=== PATIENT | male | born 1995 | race Caucasian/White ===

== ENCOUNTER 2017-09-25 19:44 | Emergency (ER) | payer OTHER ==
[2017-09-25] MEDS ORDERED: NORMAL SALINE 1000 ML 1,000 ML IV ONE (22:35)
[2017-09-25] MEDS ORDERED: ONDANSETRON HCL INJ/PF 4 MG/2 ML SDV IV ONE (22:35)
[2017-09-25 23:42] LABS: ALANINE AMINOTRANSFERASE 31 U/L (21-72); ALKALINE PHOSPHATASE 85 U/L (38-126); ANION GAP 13 (5-19); ASPARTATE AMINO TRANSFERASE 19 U/L (17-59); BILIRUBIN,DIRECT 0.4 mg/dL (0.0-0.4); BILIRUBIN,TOTAL 0.6 mg/dL (0.2-1.3); BLOOD UREA NITROGEN 16 mg/dL (7-20); CALCIUM 9.5 mg/dL (8.4-10.2); CARBON DIOXIDE 25 mmol/L (22-30); CHLORIDE 101 mmol/L (98-107); CREATININE RESULT 0.86 mg/dL (0.52-1.25); GLUCOSE 101 mg/dL (75-110); LIPASE 108.2 U/L (23-300); POTASSIUM 4.3 mmol/L (3.6-5.0); SODIUM 139.4 mmol/L (137-145); TOTAL PROTEIN 6.7 g/dL (6.3-8.2)
[2017-09-25] MEDS ORDERED: ONDANSETRON ODT 4 MG TAB (6 TAB/DSPK) PO PRN (23:51)
--- NOTE | 2017-09-25 23:53 | ER Document Report ---
ED General - General Chief Complaint: Nausea/Vomiting/Diarrhea Stated Complaint: DIARRHEA AND VOMITING Time Seen by Provider: 09/25/17 21:53 Notes: Patient is a 22-year-old male without past medical history who presents with 5 days of watery diarrhea as well as 1 day of vomiting. The patient reports that the diarrhea has been persistent for the past 5 days and he has been using loperamide without any significant improvement in the diarrhea. He notes that he began to vomit today that it was nonbilious. He is uncertain if he has had any sick contacts. Patient states that he felt he had subjective fever at home but has not recorded temperature. He has no history of similar symptoms in the past. He denies any focal abdominal pain. He has been able to tolerate oral fluids since the onset of vomiting. He has not seen his primary care doctor regarding today's concerns. TRAVEL OUTSIDE OF THE [place] IN LAST 30 DAYS: No - Related Data Allergies/Adverse Reactions: No Known Allergies Allergy (Verified 09/25/17 20:31) Past Medical History - General Information source: Patient - Social History Smoking Status: Never Smoker Chew tobacco use (# tins/day): No Frequency of alcohol use: None Drug Abuse: None Lives with: Spouse/Significant other Family History: Reviewed & Not Pertinent Patient has suicidal ideation: No Patient has homicidal ideation: No Renal/ Medical History: Denies: Hx Peritoneal Dialysis Review of Systems - Review of Systems Notes: Constitutional: Negative for fever. HENT: Negative for sore throat. Eyes: Negative for visual changes. Cardiovascular: Negative for chest pain. Respiratory: Negative for shortness of breath. Gastrointestinal: Negative for abdominal pain, positive for vomiting and diarrhea Genitourinary: Negative for dysuria. Musculoskeletal: Negative for back pain. Skin: Negative for rash. Neurological: Negative for headaches, weakness or numbness. 10 point ROS negative except as marked above and in HPI. Physical Exam - Vital signs Vitals: Temp Pulse Resp BP Pulse Ox 98.3 F 64 18 149/91 H 98 09/25/17 20:31 09/25/17 20:31 09/25/17 20:31 09/25/17 20:31 09/25/17 20:31 Interpretation: Hypertensive Notes: PHYSICAL EXAMINATION: GENERAL: Well-appearing, well-nourished and in no acute distress. HEAD: Atraumatic, normocephalic. EYES: Pupils equal round and reactive to light, extraocular movements intact, sclera anicteric, conjunctiva are normal. ENT: nares patent, oropharynx clear without exudates. Moist mucous membranes. NECK: Normal range of motion, supple without lymphadenopathy LUNGS: Breath sounds clear to auscultation bilaterally and equal. No wheezes rales or rhonchi. HEART: Regular rate and rhythm without murmurs ABDOMEN: Soft, nontender, normoactive bowel sounds. No guarding, no rebound. No masses appreciated. EXTREMITIES: Normal range of motion, no pitting or edema. No cyanosis. NEUROLOGICAL: No focal neurological deficits. Moves all extremities spontaneously and on command. PSYCH: Normal mood, normal affect. SKIN: Warm, Dry, normal turgor, no rashes or lesions noted. Course - Re-evaluation Re-evalutation: 09/25/17 23:52 Presentation of an overall well-appearing patient in no acute distress with complaints of nausea, vomiting, diarrhea. This is consistent with likely viral gastroenteritis. Patient has no abdominal tenderness on exam and specifically no tenderness in the RLQ, LLQ, RUQ. Overall well hydrated on exam. Able to tolerate oral intake here in the emergency department. Low clinical suspicion for any acute life-threatening etiology based on exam and history including acute cholecystitis, SBO, appendicitis, nephrolithiasis, or pylonephritis. CMP without evidence of acute hepatitis or significant dehydration. I provided a [id number] prescription for ciprofloxacin if patient's diarrhea persists for 2 additional days as he is currently on his fifth day of diarrhea. At this time will discharge with return precautions and follow-up recommendations. Verbal discharge instructions given a the bedside and opportunity for questions given. Medication warnings reviewed. Patient is in agreement with this plan and has verbalized understanding of return precautions and the need for primary care follow-up in the next 24-72 hours. - Vital Signs Vital signs: Temp Pulse Resp BP Pulse Ox 98.3 F 60 18 130/66 H 100 09/25/17 20:31 09/26/17 00:08 09/26/17 00:08 09/26/17 00:08 09/26/17 00:08 - Laboratory Result Diagrams: 09/25/17 22:57 Discharge - Discharge Clinical Impression: Vomiting and diarrhea Condition: Good Disposition: HOME, SELF-CARE Additional Instructions: Your symptoms are likely due to a viral illness and should resolve in the next several days. You can take [id number] loperamide also known as Imodium as needed for diarrhea per box instructions. Continue to stay hydrated with plenty of solution such as Gatorade or Pedialyte. You are being prescribed Zofran to take as needed for nausea and vomiting. You can take ciprofloxacin if your diarrhea persists for more than 2 additional days. Please return if you develop severe abdominal pain, pass out, become unable to tolerate any oral fluids for 12 more hours, or any other symptoms that are concerning to you. Prescriptions: Ciprofloxacin HCl [Cipro 500 mg Tablet] 500 mg PO BID #6 tablet
[2017-09-26 00:09] VITALS: BP 130/66
== END 2017-09-26 00:07 | disposition home or self-care (01) ==
LOC: ER 19:44
DX: R11.2 Nausea with vomiting, unspecified (principal); R19.7 Diarrhea, unspecified
CPT/HCPCS: 99284; 96361; 96374; 36415; 83690; 80053; J2405; J7030

== ENCOUNTER 2020-05-01 10:53 | Emergency (ER) | payer OTHER ==
[2020-05-01] MEDS ORDERED: CEFTRIAXONE 1 GM/D5W RTU 1 GM/50 ML RTUPB IV ONE (11:33)
--- NOTE | 2020-05-01 11:35 | ER Document Report ---
ED Medical Screen (RME) - General Chief Complaint: Hand Swelling Stated Complaint: HAND SWELLING Time Seen by Provider: 05/01/20 11:30 Mode of Arrival: Ambulatory Information source: Patient Notes: HPI; 24-year-old male presents to the emergency room with left hand and forearm swelling. States he was bitten 2 days ago on his left wrist pain unknown bug. Has noticed increased swelling and redness today. Denies fevers. No medications for symptoms. Tetanus up-to-date. PE: Alert and oriented x3. Mild distress noted. Significant swelling to the left hand and forearm. With erythema. Positive left radial pulse. Puncture wound noted to the distal left wrist. I have greeted and performed a rapid initial assessment of this patient. A comprehensive ED assessment and evaluation of the patient, analysis of test results and completion of the medical decision making process will be conducted by additional ED providers. I have specifically instructed the patient or family members with the patient to immediately return to any nursing staff should anything change in the patient's condition or with their chief complaint. TRAVEL OUTSIDE OF THE [place] IN LAST 30 DAYS: No - Related Data Allergies/Adverse Reactions: No Known Allergies Allergy (Verified 05/01/20 11:30) Past Medical History Renal/ Medical History: Denies: Hx Peritoneal Dialysis Physical Exam - Vital signs Vitals: Temp Pulse Resp BP Pulse Ox 98.3 F 60 12 139/64 H 98 05/01/20 10:56 05/01/20 10:56 05/01/20 10:56 05/01/20 10:56 05/01/20 10:56 Course - Vital Signs Vital signs: Temp Pulse Resp BP Pulse Ox 98.3 F 60 12 139/64 H 98 05/01/20 10:56 05/01/20 10:56 05/01/20 10:56 05/01/20 10:56 05/01/20 10:56
[2020-05-01 12:06] LABS: ABSOLUTE EOSINOPHILS # (AUTO) 0.3 10^3/uL (0.0-0.6); ABSOLUTE LYMPHOCYTES (AUTO) 2.3 10^3/uL (0.5-4.7); ABSOLUTE MONOCYTES (AUTO) 0.6 10^3/uL (0.1-1.4); ABSOLUTE NEUT (AUTO) 3.4 10^3/uL (1.7-8.2); BASOPHILS % (AUTO) 0.7 % (0-2); EOSINOPHILS % (AUTO) 4.7 % (0-6); HEMOGLOBIN 16.6 g/dL (13.5-17.0); LYMPHOCYTES % (AUTO) 34.2 % (13-45); MEAN CORPUSCULAR HEMOGLOBIN 29.3 pg (27.0-33.4); MEAN CORPUSCULAR HGB CONC 33.9 g/dL (32.0-36.0); MEAN CORPUSCULAR VOLUME 87 fl (80-97); MONOCYTES % (AUTO) 9.3 % (3-13); PLATELET COUNT 199 10^3/uL (150-450); RED BLOOD COUNT 5.66 10^6/uL (4.35-5.55); RED CELL DISTRIBUTION WIDTH 13.3 % (11.5-14.0); SEGMENTED NEUTROPHILS % (AUTO) 51.1 % (42-78); TOTAL CELLS COUNTED % (AUTO) 100 %; WHITE BLOOD COUNT 6.6 10^3/uL (4.0-10.5)
[2020-05-01] MEDS ORDERED: METHYLPREDNISOLONE INJ 125 MG/2 ML SDV IV ONE (12:22)
[2020-05-01 12:24] LABS: ALBUMIN 4.5 g/dL (3.5-5.0); ALKALINE PHOSPHATASE 85 U/L (38-126); ANION GAP 7 (5-19); ASPARTATE AMINO TRANSFERASE 24 U/L (17-59); BILIRUBIN,TOTAL 0.4 mg/dL (0.2-1.3); BLOOD UREA NITROGEN 13 mg/dL (7-20); CARBON DIOXIDE 29 mmol/L (22-30); CHLORIDE 103 mmol/L (98-107); GLUCOSE 81 mg/dL (75-110); POTASSIUM 4.4 mmol/L (3.6-5.0); TOTAL PROTEIN 7.3 g/dL (6.3-8.2)
--- NOTE | 2020-05-01 12:38 | ER Document Report ---
Entered by CHAKA RENO SCRIBE 05/01/20 1226 Acting as scribe for:CHASIDY LIZARRAGA MD ED Hand/Wrist Injury - General Chief Complaint: Insect Bite Stated Complaint: HAND SWELLING Time Seen by Provider: 05/01/20 11:30 Mode of Arrival: Ambulatory Information source: Patient Notes: This 24-year-old male patient presents to the emergency department today with complaints of left wrist and hand swelling/pain. Patient states that x2-3 days ago he went to bend his left wrist he noticed a pressure feeling in the wrist. Patient states he looked down and noticed that his left wrist was swollen. Patient states he did not see anything bite him but he noticed a bite reid on his wrist. Patient states the swelling has progressed and today he finally decided to come in to have it evaluated as his hand began swelling. Patient states he has tried Benadryl with minimal to no relief. TRAVEL OUTSIDE OF THE [place] IN LAST 30 DAYS: No - Related Data Allergies/Adverse Reactions: No Known Allergies Allergy (Verified 05/01/20 11:30) Past Medical History - General Information source: Patient - Social History Smoking Status: Never Smoker Cigarette use (# per day): No Chew tobacco use (# tins/day): No Frequency of alcohol use: Occasional Drug Abuse: None [place] [employer] [place] with: Family Family History: Reviewed & Not Pertinent Patient has homicidal ideation: No - Medical History Medical History: Negative Past Surgical History: Reports: Hx Appendectomy Review of Systems - Review of Systems Constitutional: No symptoms reported EENT: No symptoms reported Cardiovascular: No symptoms reported Respiratory: No symptoms reported Gastrointestinal: No symptoms reported Genitourinary: No symptoms reported Male Genitourinary: No symptoms reported Musculoskeletal: See HPI, Other - left hand swelling Skin: No symptoms reported Hematologic/Lymphatic: No symptoms reported Neurological/Psychological: No symptoms reported -: Yes All other systems reviewed and negative Physical Exam - Vital signs Vitals: Temp Pulse Resp BP Pulse Ox 98.3 F 60 12 139/64 H 98 05/01/20 10:56 05/01/20 10:56 05/01/20 10:56 05/01/20 10:56 05/01/20 10:56 - Notes Notes: Physical Exam: General: Alert, appears well. HEENT: Normocephalic. Atraumatic. PERRL. Extraocular movements intact. Oropharynx clear. Neck: Supple. Non-tender. Respiratory: No respiratory distress. Clear and equal breath sounds bilaterally. Cardiovascular: Regular rate and rhythm. Abdominal: Normal Inspection. Non-tender. No distension. Normal Bowel Sounds. Back: No gross abnormalities. Extremities: Moves all four extremities. Upper extremities: Left wrist/hand swelling. Puncture wound to left wrist. Lower extremities: Normal inspection. No edema. Normal ROM. Neurological: Normal cognition. AAOx4. Normal speech. Psychological: Normal affect. Normal Mood. Skin: Warm. Dry. Normal color. Course - Re-evaluation Re-evalutation: 05/01/20 12:35 Vital signs stable showing no distress swelling still noted in the right hand and forearm. - Vital Signs Vital signs: Temp Pulse Resp BP Pulse Ox 98.3 F 60 12 139/64 H 98 05/01/20 11:30 05/01/20 10:56 05/01/20 10:56 05/01/20 10:56 05/01/20 10:56 - Laboratory Result Diagrams: 05/01/20 11:56 05/01/20 11:56 Laboratory results interpreted by me: 05/01/20 11:56 RBC 5.66 H Discharge - Discharge Clinical Impression: Insect bite, Cellulitis of left upper extremity Condition: Stable Disposition: HOME, SELF-CARE Prescriptions: Amoxicillin 875 mg PO BID #20 tablet Prednisone [Deltasone 20 mg Tablet] 2 tab PO DAILY 5 Days #10 tablet I personally performed the services described in the documentation, reviewed and edited the documentation which was dictated to the scribe in my presence, and it accurately records my words and actions.
[2020-05-01 13:01] VITALS: BP 126/74
== END 2020-05-01 12:59 | disposition home or self-care (01) ==
LOC: ER 10:53
DX: L03.114 Cellulitis of left upper limb (principal); M25.532 Pain in left wrist; M79.642 Pain in left hand; M79.89 Other specified soft tissue disorders; W57.XXXA Bitten or stung by nonvenomous insect and other nonvenomous arthropods, initial encounter
CPT/HCPCS: 99282; 96375; 96365; 36415; 87040; 83605; 85025; 80053; J2930; J0696